=== PATIENT | male | born 1980 | race African-American/Black ===

== ENCOUNTER 2023-01-15 17:42 | Emergency (ER) | payer SELFPAY ==
[~2023-01-15] VITALS: Ht 177.8 cm; Wt 88.4 kg
[~2023-01-15 17:42] MED LIST: (None)3.5 GM OP; AMOXICILLIN500 MG OR; GENTAMICIN15 ML/BTL OP; NO HOME MEDS; ROBITUSS12 OR
[2023-01-15 20:18] VITALS: BP 116/74
== END 2023-01-15 20:19 | disposition home or self-care (01) | DRG 605 ==
LOC: ED 17:42
DX: S00.81XA Abrasion of other part of head, initial encounter (principal); S50.11XA Contusion of right forearm, initial encounter; S39.012A Strain of muscle, fascia and tendon of lower back, initial encounter; F17.200 Nicotine dependence, unspecified, uncomplicated; V13.4XXA Pedal cycle driver injured in collision with car, pick-up truck or van in traffic accident, initial encounter; Y93.55 Activity, bike riding